=== PATIENT | female | born 1950 | race Hispanic/Latino ===

== ENCOUNTER 2017-10-12 15:28 | Observation (INO) | payer MEDICARE ==
[2017-10-12 15:49] VITALS: BMI 34.4
--- NOTE | 2017-10-12 16:13 | ED PDOC ---
Arrival/HPI - General Chief Complaint: Anxiety Time Seen by Provider: 10/12/17 15:35 Historian: Patient - History of Present Illness Narrative History of Present Illness (Text): 10/12/17 16:07 The patient, Vibha Roberts, a 66 year old female, whose PMHx includes HTN, hypercholesterolemia, chronic palpitation and anxiety, who presents to the ED complaining of palpitation x 3 weeks. Patient stated despite taking Toprol, palpitation have been more frequent. Patient saw her PMD Dr. Gao x 2 weeks ago. She stated EKG at doctor office was normal, and she was recommended to see Dr. Claros Parts Assembler, who she saw 2 days after. Patient stated Dr. Claros suggested to have her have a stress test, but she decline to get it. She wanted to monitor her symptoms first. Patient continues with symptoms. She had it last night. Symptoms started after waking up this morning. Patient feels mild shortness of breath when palpitation occurs. Patient does not think is her anxiety. Denies chest pain, abdominal pain, urinary symptoms, dizziness. Patient also noted she saw her fine grade operator a couple weeks ago, and her thyroid test was normal. Time/Duration: Other (see hpi) Context: Home Past Medical History - Provider Review Nursing Documentation Reviewed: Yes - Infectious Disease Hx of Infectious Diseases: None - Tetanus Immunization Tetanus Immunization: Unknown - Cardiac Hx Cardiac Disorders: Yes Hx Hypertension: Yes Hx Pacemaker: No Other/Comment: palpitations - Pulmonary Hx Respiratory Disorders: No Other/Comment: epiglotitis - trach 2012 - Neurological Hx Neurological Disorder: No - HEENT Other/Comment: h/o epiglottitis - Renal Hx Kidney Stones: Yes (2012) - Endocrine/Metabolic Hx Endocrine Disorders: No - Hematological/Oncological Hx Blood Disorders: No Hx Blood Transfusions: No Hx Blood Transfusion Reaction: No - Integumentary Hx Dermatological Disorder: No - Musculoskeletal/Rheumatological Hx Musculoskeletal Disorders: Yes - Gastrointestinal Hx Gastrointestinal Disorders: No - Genitourinary/Gynecological Hx Genitourinary Disorders: No - Psychiatric Hx Psychophysiologic Disorder: Yes Hx Anxiety: Yes Hx Emotional Abuse: No Hx Physical Abuse: No Hx Substance Use: No - Surgical History Hx Cholecystectomy: Yes Hx Musculoskeletal Surgery: Yes (right elbow) - Anesthesia Hx Anesthesia Reactions: Yes (B/P DROPS) - Suicidal Assessment Feels Threatened In Home Enviroment: No Family/Social History - Physician Review Nursing Documentation Reviewed: Yes Family/Social History: Other (noncontributory) Smoking Status: Never Smoked Hx Alcohol Use: Yes Hx Substance Use: No Hx Substance Use Treatment: No Allergies/Home Meds Allergies/Adverse Reactions: Allergies cefuroxime axetil [From Ceftin] Allergy (Verified 07/29/16 12:52) RASH Home Medications: Home Meds Medication Instructions Recorded Confirmed Aspirin [Aspir 81] 81 mg PO DAILY 01/29/12 10/12/17 Metoprolol Succinate [Toprol XL] 100 mg PO BID 01/29/12 10/12/17 Pantoprazole [Protonix EC Tab] 40 mg PO DAILY 10/30/13 10/12/17 Pravastatin Sodium [Pravachol] 80 mg PO HS 07/29/16 10/12/17 Valsartan/Hydrochlorothiazide 1 tab PO DAILY 07/29/16 10/12/17 [Valsartan-Hctz 160-25 mg Tab] Review of Systems - Review of Systems Constitutional: Normal. absent: Fatigue, Weight Change, Fevers Eyes: Normal ENT: Normal Respiratory: Normal. absent: SOB, Cough Cardiovascular: Normal, Palpitations. absent: Chest Pain, Edema, Calf Pain, HUMPHREYS , Orthopnea, Syncope Gastrointestinal: Normal. absent: Abdominal Pain, Nausea, Vomiting Genitourinary Female: Normal. absent: Dysuria, Frequency, Hematuria Musculoskeletal: Normal. absent: Back Pain, Neck Pain Skin: Normal. absent: Rash Neurological: Normal. absent: Headache, Dizziness, Focal Weakness, Gait Changes , Speech Changes, Facial Droop, Disequilibrium, Seizure Endocrine: Normal Hemo/Lymphatic: Normal Psychiatric: Normal. absent: Depression, Suicidal Ideation Physical Exam Vital Signs Temp Pulse Resp BP Pulse Ox 10/12/17 18:19 68 18 134/71 99 10/12/17 15:51 98.9 F 92 H 18 138/91 H 98 Temperature: Afebrile Blood Pressure: Normal Pulse: Regular Respiratory Rate: Normal Appearance: Positive for: Well-Appearing, Non-Toxic, Comfortable Pain Distress: None Mental Status: Positive for: Alert and Oriented X 3 - Systems Exam Head: Present: Atraumatic, Normocephalic Pupils: Present: PERRL Extroacular Muscles: Present: EOMI Conjunctiva: Present: Normal Mouth: Present: Moist Mucous Membranes Neck: Present: Normal Range of Motion. No: Meningeal Signs Respiratory/Chest: Present: Clear to Auscultation, Good Air Exchange. No: Respiratory Distress, Accessory Muscle Use, Wheezes, Retracting, Rhonchi Cardiovascular: Present: Regular Rate and Rhythm, Normal S1, S2. No: Murmurs Abdomen: No: Tenderness, Distention, Peritoneal Signs, Rebound, Guarding Back: Present: Normal Inspection. No: CVA Tenderness Upper Extremity: Present: Normal Inspection, Normal ROM. No: Cyanosis, Edema Lower Extremity: Present: Normal Inspection, Normal ROM. No: Edema Neurological: Present: GCS=15, CN II-XII Intact, Speech Normal Skin: Present: Warm, Dry, Normal Color. No: Rashes Psychiatric: Present: Alert, Oriented x 3, Normal Insight, Normal Concentration. No: Suicidal Ideation, Homicidal Ideation Medical Decision Making ED Course and Treatment: 10/12/17 18:[address] Barton Hospitalist regarding patient complaining of palpitation which it has been worsening. We reviewed labs, Chest X-ray and previous visits. He agreed with plan for observation. Re-evaluation Time: 18:00 Reassessment Condition: Re-examined, Improving,but remains with symptoms - Lab Interpretations Lab Results: 10/12/17 16:30 10/12/17 16:30 Lab Results 10/12/17 17:00: Urine Color Yellow, Urine Appearance Sl cloudy, Urine pH 7.0, Ur Specific [place] 1.015, Urine Protein Negative, Urine Glucose (UA) Negative, Urine Ketones Negative, Urine Blood Trace-intact H, Urine Nitrate Negative, Urine Bilirubin Negative, Urine Urobilinogen 0.2, Ur Leukocyte Esterase Moderate H, Urine RBC 1 - 3, Urine WBC 10 - 15, Ur Epithelial Cells 4 - 5, Amorphous Sediment Few, Urine Bacteria Mod 10/12/17 16:30: Sodium 143, Potassium 4.8, Chloride 104, Carbon Dioxide 30, Anion Gap 13, BUN 15, Creatinine 1.2, Est GFR ( Amer) 54, Est GFR (Non- Af Amer) 45, Random Glucose 116 H, Calcium 10.9 H, Magnesium 1.7, Total Bilirubin 0.9, AST 45 H, ALT 39, Alkaline Phosphatase 42, Lactate Dehydrogenase 535, Total Creatine Kinase 96, Troponin I < 0.01, NT-Pro-B Natriuret Pep 61.2, Total Protein 7.6, Albumin 4.0, Globulin 3.6, Albumin/Globulin Ratio 1.1 10/12/17 16:30: WBC 8.6 D, RBC 4.02, Hgb 13.0, Hct 37.8, MCV 94.0, MCH 32.3, MCHC 34.4, RDW 12.9, Plt Count 241, MPV 8.5, Gran % 71.7 H, Lymph % (Auto) 16.1 L, Amelia % (Auto) 11.0 H, Eos % (Auto) 1.0 L, Baso % (Auto) 0.2, Gran # 6.18, Lymph # (Auto) 1.4, Amelia # (Auto) 1.0 H, Eos # (Auto) 0.1, Baso # (Auto) 0.02 I have reviewed the lab results: Yes Interpretation: Abnormal lab values - RAD Interpretation Narrative RAD Interpretations (Text): 10/12/17 16:56 Chest x-rays: NAD Radiology Orders: 10/12/17 16:16 CHEST PORTABLE [RAD] Stat - EKG Interpretation Interpreted by ED Physician: Yes (NSR @ 89 bpm. nonspecific t wave abnormality) Type: 12 lead EKG Comparison: Similar to previous EKG - Medication Orders Current Medication Orders: Aspirin (Ecotrin) 81 mg PO DAILY DIOGENES Metoprolol Succinate (Toprol Xl) 100 mg PO BID DIOGENES Non-Formulary Medication (Pravastatin Sodium [Pravachol]) 80 mg PO HS DIOGENES Non-Formulary Medication (Valsartan/Hydrochlorothiazide [Valsartan-Hctz 160-25 Mg Tab]) 1 tab PO DAILY DIOGENES Pantoprazole Sodium (Protonix Ec Tab) 40 mg PO DAILY DIOGENES Discontinued Medications Nitrofurantoin Macrocrystals (Macrobid) 100 mg PO STAT STA PRN Reason: Protocol Stop: 10/12/17 17:51 Last Admin: 10/12/17 17:55 Dose: 100 mg Disposition/Present on Arrival - Present on Arrival Any Indicators Present on Arrival: No History of DVT/PE: No History of Uncontrolled Diabetes: No Urinary Catheter: No History of Decub. Ulcer: No History Surgical Site Infection Following: None - Disposition Have Diagnosis and Disposition been Completed?: Yes Diagnosis: Intermittent palpitations, Acute cystitis Disposition: HOSPITALIZED Disposition Time: 18:00 Patient Plan: Observation Condition: STABLE
[2017-10-12 16:54] LABS: BASO # 0.02 K/mm3 (0.0-2.0); BASO % 0.2 % (0.0-3.0); EOS # 0.1 (0.0-0.7); GRAN # 6.18 (1.4-6.5); GRAN % 71.7 % (50.0-68.0); LYMPH # 1.4 (1.2-3.4); LYMPH % 16.1 % (22.0-35.0); MEAN CORPUSCULAR HEMOGLOBIN 32.3 pg (25.0-35.0); MEAN CORPUSCULAR HGB CONC 34.4 g/dl (31.0-37.0); MEAN PLATELET VOLUME 8.5 fl (7.0-11.0); RBC 4.02 10^6/uL (3.5-6.1); RED CELL DISTRIBUTION WIDTH 12.9 % (11.5-14.5); WHITE BLOOD COUNT 8.6 10^3/ul (4.5-11.0)
[2017-10-12 17:03] LABS: ALB/GLOB RATIO 1.1 (1.1-1.8); ALT/SGPT 39 U/L (7-56); AST/SGOT 45 U/L (14-36); BLOOD UREA NITROGEN 15 mg/dL (7-21); CALCIUM 10.9 mg/dL (8.4-10.5); GFR AFRICAN-AMERICAN 54; GFR NON-AFRICAN AMERICAN 45
--- NOTE | 2017-10-12 17:21 | RAD ---
HISTORY: palpitation COMPARISON: 07/29/2016 FINDINGS: LUNGS: No active pulmonary disease. PLEURA: No significant pleural effusion identified, no pneumothorax apparent. CARDIOVASCULAR: Normal. OSSEOUS STRUCTURES: No significant abnormalities. VISUALIZED UPPER ABDOMEN: Normal. OTHER FINDINGS: None. IMPRESSION: No active disease.
[2017-10-12 17:22] LABS: B-TYPE NATRIURETIC PEPTIDE 61.2 pg/mL (0-450); TROPONIN I < 0.01 ng/mL
[2017-10-12 17:28] LABS: URINE APPEARANCE SL CLOUDY (CLEAR); URINE BILIRUBIN NEGATIVE (NEGATIVE); URINE BLOOD TRACE-INTACT (NEGATIVE); URINE COLOR YELLOW (YELLOW); URINE GLUCOSE (UA) NEGATIVE (NEGATIVE); URINE LEUKOCYTE ESTERASE MODERATE Leu/uL (NEGATIVE); URINE PROTEIN NEGATIVE mg/dL (<30 mg/dL); URINE UROBILINOGEN 0.2 E.U./dL (<1 E.U./dL)
[2017-10-12 17:32] LABS: URINE AMORPHOUS SEDIMENT FEW; URINE BACTERIA MOD (NEG)
--- NOTE | 2017-10-12 18:50 | CP.PCM.HP ---
<Juliano Fernandez - Last Filed: 10/12/17 19:14> History of Present Illness - History of Present Illness History of Present Illness: 66 year old female with a past medical history of hypertension, dyslipidemia, anxiety disorder unpspecified who presents to the ED complaining of anxiety attacks for the past three weeks. She reports the attacks occur at rest, unrelated to activity, with the feelings that she cannot breath. She denies the sensation that her heart is pulsating out of her chest, states the episodes last for 2-3 minutes, denies associated chest pain or diaphoresis. Patient stated despite taking Toprol 100 mg BID she is having the palpitations more frequently and hence was referred to see Dr. Wyatt who recommended a stress test that she declined. She denies chest pain, abdominal pain, urinary symptoms , dizziness, syncope. dysuria, nausea, or vomiting. In the ED labs were notable for UTI for which she was given PO Macrobid. She denies any changes to her medication or any excess stressors. She does not take anything for her anxiety attacks though she states she does have tranquilizer at home. 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, denies alcohol, tobacco, or illicit drug use Present on Admission - Present on Admission Any Indicators Present on Admission: No Review of Systems - Review of Systems All systems: reviewed and no additional remarkable complaints except (as per HPI ) Past Patient History - Infectious Disease Hx of Infectious Diseases: None - Tetanus Immunizations Tetanus Immunization: Unknown - Past Social History Smoking Status: Never Smoked - CARDIAC Hx Cardiac Disorders: Yes Hx Hypertension: Yes Hx Pacemaker: No Other/Comment: palpitations - PULMONARY Hx Respiratory Disorders: No Other/Comment: epiglotitis - trach 2012 - NEUROLOGICAL Hx Neurological Disorder: No - HEENT Other/Comment: h/o epiglottitis - RENAL Hx Kidney Stones: Yes (2011) - ENDOCRINE/METABOLIC Hx Endocrine Disorders: No - HEMATOLOGICAL/ONCOLOGICAL Hx Blood Disorders: No Hx Blood Transfusions: No Hx Blood Transfusion Reaction: No - INTEGUMENTARY Hx Dermatological Problems: No - MUSCULOSKELETAL/RHEUMATOLOGICAL Hx Musculoskeletal Disorders: Yes - GASTROINTESTINAL Hx Gastrointestinal Disorders: No - GENITOURINARY/GYNECOLOGICAL Hx Genitourinary Disorders: No - PSYCHIATRIC Hx Psychophysiologic Disorder: Yes Hx Anxiety: Yes Hx Emotional Abuse: No Hx Physical Abuse: No Hx Substance Use: No - SURGICAL HISTORY Hx Cholecystectomy: Yes Hx Musculoskeletal Surgery: Yes (right elbow) - ANESTHESIA Hx Anesthesia Reactions: Yes (B/P DROPS) Meds Allergies/Adverse Reactions: Allergies Allergy/AdvReac Type Severity Reaction Status Date / Time cefuroxime axetil Allergy RASH Verified 07/29/16 12:52 [From Ceftin] Physical Exam - Constitutional Appears: Non-toxic, No Acute Distress - Head Exam Head Exam: ATRAUMATIC, NORMOCEPHALIC - Eye Exam Eye Exam: EOMI, Normal appearance - ENT Exam ENT Exam: Mucous Membranes Moist, Normal Oropharynx - Neck Exam Neck exam: Positive for: Normal Inspection - Respiratory Exam Respiratory Exam: Clear to Auscultation Bilateral, NORMAL BREATHING PATTERN. absent: Accessory Muscle Use - Cardiovascular Exam Cardiovascular Exam: RRR, +S1, +S2 - GI/Abdominal Exam GI & Abdominal Exam: Normal Bowel Sounds, Soft - Extremities Exam Extremities exam: Positive for: normal inspection. Negative for: calf tenderness - Back Exam Back exam: NORMAL INSPECTION. absent: CVA tenderness (L), CVA tenderness (R) - Neurological Exam Neurological exam: Alert, CN II-XII Intact, Oriented x3 - Psychiatric Exam Psychiatric exam: Normal Affect, Normal Mood - Skin Skin Exam: Dry, Intact, Normal Color, Warm Results - Vital Signs Recent Vital Signs: Last Vital Signs Temp 98.9 F 10/12/17 15:51 Pulse 68 10/12/17 18:19 Resp 18 10/12/17 18:19 BP 134/71 10/12/17 18:19 Pulse Ox 99 10/12/17 18:19 - Labs Result Diagrams: 10/12/17 16:30 10/12/17 16:30 Assessment & Plan - Assessment and Plan (Free Text) Assessment: 1) Episodic dyspnea and palpitations - EKG shows - trend troponins - echocardiogram - cardiology consulted - TSH, lipid panel, d-dimer, HgA1c, urine drug screen - monitor for arrhytmias on telemetry 2) UTI - repeat UA - Continue Nitrofurantoin 100 mg q12h 3) GI/DVT - Protonix - SCD Case seen and discussed with Dr. Barton - Date & Time Date: 10/12/17 Time: 19:15 <Rosa Barton - Last Filed: 10/13/17 13:26> Results - Vital Signs Recent Vital Signs: Last Vital Signs Temp 98.1 F 10/13/17 07:27 Pulse 72 10/13/17 10:23 Resp 19 10/13/17 07:27 BP 137/73 10/13/17 10:23 Pulse Ox 96 10/13/17 07:27 - Labs Result Diagrams: 10/12/17 16:30 10/12/17 16:30 Labs: Laboratory Results - last 24 hr 10/12/17 22:00 Troponin I < 0.01 Attending/Attestation - Attestation I have personally seen and examined this patient.: Yes I have fully participated in the care of the patient.: Yes I have reviewed all pertinent clinical information: Yes Notes (Text): 10/13/17 13:23 Medical record note made by the resident after discussion with my direction and input after the patient was personally seen and examined by me. I have reviewed the chart and agree that the record accurately reflects by personal performance of the history, physical exam, data review, and medical decision-making, in the course for the patient. I have also personally directed the plan of care. 66 year old female with a past medical history of hypertension, dyslipidemia, anxiety disorder is admitted with H/O intermittent palpitation and UTI. Patient is asymptomatic in ER.We will observe patient in telemetry.We will check thyroid functions.We will also get Cardiology evaluation. Continue antibiotics for UTI. Management plan was discussed in detail with patient. Education was provided.
[2017-10-12 19:02] LABS: HDL CHOLESTEROL 42 mg/dL (29-60)
[2017-10-12 19:13] LABS: LDL CHOLESTEROL 93 mg/dL (0-129)
[2017-10-12] MEDS ORDERED: Metoprolol Succinate 50 mg XL Tab PO ONE ×2 (22:42→22:56)
[2017-10-12] MEDS ORDERED: Pneumococcal 23-Valent Vaccine IM ONE (22:47)
[2017-10-13 07:28] VITALS: BP 137/73; PULSE 72; RESP 19; TEMP 98.1; O2SAT 96
[2017-10-13] MEDS ORDERED: Pantoprazole 40 mg EC Tab PO SCH (10:00)
[2017-10-13] MEDS ORDERED: Metoprolol Succinate 100 mg XL Tab PO SCH ×2 (10:30→18:00)
--- NOTE | 2017-10-13 14:26 | CARD ---
APPROVED REPORT EKG Measurement Heart [id number] <Conclusion> Normal sinus rhythm Low voltage QRS RSR' or QR pattern in V1 suggests right ventricular conduction delay Left anterior fascicular block Nonspecific T wave abnormality Abnormal ECG
--- NOTE | 2017-10-13 16:10 | CP.PCM.DIS ---
<Juliano Fernandez - Last Filed: 10/13/17 16:10> Provider - Provider Date of Admission: 10/12/17 18:00 Attending physician: Rosa Barton MD Primary care physician: Michael Gao MD Consults: Dr. King/Yoselin Time Spent in preparation of Discharge (in minutes): 35 Diagnosis - Discharge Diagnosis (1) UTI (urinary tract infection) Status: Acute (2) Palpitation Status: Acute Hospital Course - Lab Results Lab Results: Most Recent Lab Values WBC 8.6 10^3/ul (4.5-11.0) D 10/12/17 16:30 RBC 4.02 10^6/uL (3.5-6.1) 10/12/17 16:30 Hgb 13.0 g/dL (12.0-16.0) 10/12/17 16:30 Hct 37.8 % (36.0-48.0) 10/12/17 16:30 MCV 94.0 fl (80.0-105.0) 10/12/17 16:30 MCH 32.3 pg (25.0-35.0) 10/12/17 16:30 MCHC 34.4 g/dl (31.0-37.0) 10/12/17 16:30 RDW 12.9 % (11.5-14.5) 10/12/17 16:30 Plt Count 241 10^3/uL (120.0-450.0) 10/12/17 16:30 MPV 8.5 fl (7.0-11.0) 10/12/17 16:30 Gran % 71.7 % (50.0-68.0) H 10/12/17 16:30 Lymph % (Auto) 16.1 % (22.0-35.0) L 10/12/17 16:30 Ocean % (Auto) 11.0 % (1.0-6.0) H 10/12/17 16:30 Eos % (Auto) 1.0 % (1.5-5.0) L 10/12/17 16:30 Baso % (Auto) 0.2 % (0.0-3.0) 10/12/17 16:30 Gran # 6.18 (1.4-6.5) 10/12/17 16:30 Lymph # (Auto) 1.4 (1.2-3.4) 10/12/17 16:30 Ocean # (Auto) 1.0 (0.1-0.6) H 10/12/17 16:30 Eos # (Auto) 0.1 (0.0-0.7) 10/12/17 16:30 Baso # (Auto) 0.02 K/mm3 (0.0-2.0) 10/12/17 16:30 D-Dimer, Quantitative 287 ng/mL (0-243) H 10/12/17 16:30 Sodium 143 mmol/L (132-148) 10/12/17 16:30 Potassium 4.8 mmol/L (3.6-5.0) 10/12/17 16:30 Chloride 104 mmol/L (98-107) 10/12/17 16:30 Carbon Dioxide 30 mmol/L (21-33) 10/12/17 16:30 Anion Gap 13 (10-20) 10/12/17 16:30 BUN 15 mg/dL (7-21) 10/12/17 16:30 Creatinine 1.2 mg/dl (0.7-1.2) 10/12/17 16:30 Est GFR ( Amer) 54 10/12/17 16:30 Est GFR (Non-Af Amer) 45 10/12/17 16:30 Random Glucose 116 mg/dL (70-110) H 10/12/17 16:30 Hemoglobin A1c 5.8 % (4.2-6.5) 10/12/17 16:30 Calcium 10.9 mg/dL (8.4-10.5) H 10/12/17 16:30 Magnesium 1.7 mg/dL (1.7-2.2) 10/12/17 16:30 Total Bilirubin 0.9 mg/dL (0.2-1.3) 10/12/17 16:30 AST 45 U/L (14-36) H 10/12/17 16:30 ALT 39 U/L (7-56) 10/12/17 16:30 Alkaline Phosphatase 42 U/L (38-126) 10/12/17 16:30 Lactate Dehydrogenase 535 U/L (333-699) 10/12/17 16:30 Total Creatine Kinase 96 U/L (35-230) 10/12/17 16:30 Troponin I < 0.01 ng/mL 10/12/17 22:00 NT-Pro-B Natriuret Pep 61.2 pg/mL (0-450) 10/12/17 16:30 Total Protein 7.6 g/dL (5.8-8.3) 10/12/17 16:30 Albumin 4.0 g/dL (3.0-4.8) 10/12/17 16:30 Globulin 3.6 gm/dL 10/12/17 16:30 Albumin/Globulin Ratio 1.1 (1.1-1.8) 10/12/17 16:30 Triglycerides 161 mg/dL (35-160) H 10/12/17 16:30 Cholesterol 170 mg/dL (130-200) 10/12/17 16:30 LDL Cholesterol Direct 93 mg/dL (0-129) 10/12/17 16:30 HDL Cholesterol 42 mg/dL (29-60) 10/12/17 16:30 Free T4 0.90 ng/dL (0.78-2.19) 10/12/17 16:30 Free T3 pg/mL 4.54 pg/mL (2.77-5.27) 10/12/17 16:30 TSH 3rd Generation 0.39 mIU/mL (0.46-4.68) L 10/12/17 16:30 Urine Color Yellow (YELLOW) 10/12/17 17:00 Urine Appearance Sl cloudy (CLEAR) 10/12/17 17:00 Urine pH 7.0 (4.7-8.0) 10/12/17 17:00 Ur Specific [place] 1.015 (1.005-1.035) 10/12/17 17:00 Urine Protein Negative mg/dL (<30 mg/dL) 10/12/17 17:00 Urine Glucose (UA) Negative mg/dL (NEGATIVE) 10/12/17 17:00 Urine Ketones Negative mg/dL (NEGATIVE) 10/12/17 17:00 Urine Blood Trace-intact (NEGATIVE) H 10/12/17 17:00 Urine Nitrate Negative (NEGATIVE) 10/12/17 17:00 Urine Bilirubin Negative (NEGATIVE) 10/12/17 17:00 Urine Urobilinogen 0.2 E.U./dL (<1 E.U./dL) 10/12/17 17:00 Ur Leukocyte Esterase Moderate Marie/uL (NEGATIVE) H 10/12/17 17:00 Urine RBC 1 - 3 /hpf (0-2) 10/12/17 17:00 Urine WBC 10 - 15 /hpf (0-6) 10/12/17 17:00 Ur Epithelial Cells 4 - 5 /hpf (0-5) 10/12/17 17:00 Amorphous Sediment Few 10/12/17 17:00 Urine Bacteria Mod (NEG) 10/12/17 17:00 - Hospital Course Hospital Course: 66 year old female with a past medical history of hypertension, dyslipidemia, anxiety disorder unpspecified who presents to the ED complaining of anxiety attacks for the past three weeks. She reports the attacks occur at rest, unrelated to activity, with the feelings that she cannot breath. She denies the sensation that her heart is pulsating out of her chest, states the episodes last for 2-3 minutes, denies associated chest pain or diaphoresis. Patient stated despite taking Toprol 100 mg BID she is having the palpitations more frequently and hence was referred to see Dr. Wyatt who recommended a stress test that she declined. She denies chest pain, abdominal pain, urinary symptoms , dizziness, syncope. dysuria, nausea, or vomiting. In the ED labs were notable for UTI for which she was given PO Macrobid. She denies any changes to her medication or any excess stressors. She does not take anything for her anxiety attacks though she states she does have tranquilizer at home. She was admitted and monitored on remote telemetry. EKG and troponins x3 were negative for ischemia. Cardiology cleared the patient and she was discharged with a 6 day course of Macrobid for her UTI. She was recommended to wear a holter monitor as an outpatient given the transient nature of her symptoms. During the patient hospital course she denied experiencing any palpitations, chest pain, syncope, or lightheadedness. - Date & Time of H&P Date of H&P: 10/13/17 Time of H&P: 10:05 Discharge Exam - Head Exam Head Exam: ATRAUMATIC, NORMOCEPHALIC - Eye Exam Eye Exam: EOMI, Normal appearance - ENT Exam ENT Exam: Mucous Membranes Moist, Normal Oropharynx - Neck Exam Neck exam: Normal Inspection - Respiratory Exam Respiratory Exam: Clear to PA & Lateral, NORMAL BREATHING PATTERN. absent: Accessory Muscle Use - Cardiovascular Exam Cardiovascular Exam: RRR, +S1, +S2 - GI/Abdominal Exam GI & Abdominal Exam: Normal Bowel Sounds. absent: Distended - Extremities Exam Extremities exam: normal inspection - Back Exam Back exam: NORMAL INSPECTION - Neurological Exam Neurological exam: Alert, CN II-XII Intact, Normal Gait, Oriented x3 - Psychiatric Exam Psychiatric exam: Normal Affect, Normal Mood - Skin Skin Exam: Dry, Intact, Normal Color, Warm Discharge Plan - Discharge Medications Prescriptions: Nitrofurantoin Monohyd/M-Cryst [Nitrofurantoin Ocean-Mcr 100 mg] 100 mg PO Q12H # 12 capsule - Follow Up Plan Condition: STABLE Disposition: HOME/ ROUTINE Instructions: Anxiety, Adult (DC), Shortness of Breath (Dyspnea) (DC), Palpitations (DC) Additional Instructions: 1) Patient to complete 6 day course of Nitrofurantoin for UTI. 2) Patient to follow up with Dr. Gao within one week. Referrals: Michael Gao MD [Primary Care Provider] - <Rosa Barton - Last Filed: 10/13/17 16:24> Provider - Provider Date of Admission: 10/12/17 18:00 Attending physician: Rosa Barton MD Primary care physician: Michael Gao MD Hospital Course - Lab Results Lab Results: Most Recent Lab Values WBC 8.6 10^3/ul (4.5-11.0) D 10/12/17 16:30 RBC 4.02 10^6/uL (3.5-6.1) 10/12/17 16:30 Hgb 13.0 g/dL (12.0-16.0) 10/12/17 16:30 Hct 37.8 % (36.0-48.0) 10/12/17 16:30 MCV 94.0 fl (80.0-105.0) 10/12/17 16:30 MCH 32.3 pg (25.0-35.0) 10/12/17 16:30 MCHC 34.4 g/dl (31.0-37.0) 10/12/17 16:30 RDW 12.9 % (11.5-14.5) 10/12/17 16:30 Plt Count 241 10^3/uL (120.0-450.0) 10/12/17 16:30 MPV 8.5 fl (7.0-11.0) 10/12/17 16:30 Gran % 71.7 % (50.0-68.0) H 10/12/17 16:30 Lymph % (Auto) 16.1 % (22.0-35.0) L 10/12/17 16:30 Ocean % (Auto) 11.0 % (1.0-6.0) H 10/12/17 16:30 Eos % (Auto) 1.0 % (1.5-5.0) L 10/12/17 16:30 Baso % (Auto) 0.2 % (0.0-3.0) 10/12/17 16:30 Gran # 6.18 (1.4-6.5) 10/12/17 16:30 Lymph # (Auto) 1.4 (1.2-3.4) 10/12/17 16:30 Ocean # (Auto) 1.0 (0.1-0.6) H 10/12/17 16:30 Eos # (Auto) 0.1 (0.0-0.7) 10/12/17 16:30 Baso # (Auto) 0.02 K/mm3 (0.0-2.0) 10/12/17 16:30 D-Dimer, Quantitative 287 ng/mL (0-243) H 10/12/17 16:30 Sodium 143 mmol/L (132-148) 10/12/17 16:30 Potassium 4.8 mmol/L (3.6-5.0) 10/12/17 16:30 Chloride 104 mmol/L (98-107) 10/12/17 16:30 Carbon Dioxide 30 mmol/L (21-33) 10/12/17 16:30 Anion Gap 13 (10-20) 10/12/17 16:30 BUN 15 mg/dL (7-21) 10/12/17 16:30 Creatinine 1.2 mg/dl (0.7-1.2) 10/12/17 16:30 Est GFR ( Amer) 54 10/12/17 16:30 Est GFR (Non-Af Amer) 45 10/12/17 16:30 Random Glucose 116 mg/dL (70-110) H 10/12/17 16:30 Hemoglobin A1c 5.8 % (4.2-6.5) 10/12/17 16:30 Calcium 10.9 mg/dL (8.4-10.5) H 10/12/17 16:30 Magnesium 1.7 mg/dL (1.7-2.2) 10/12/17 16:30 Total Bilirubin 0.9 mg/dL (0.2-1.3) 10/12/17 16:30 AST 45 U/L (14-36) H 10/12/17 16:30 ALT 39 U/L (7-56) 10/12/17 16:30 Alkaline Phosphatase 42 U/L (38-126) 10/12/17 16:30 Lactate Dehydrogenase 535 U/L (333-699) 10/12/17 16:30 Total Creatine Kinase 96 U/L (35-230) 10/12/17 16:30 Troponin I < 0.01 ng/mL 10/12/17 22:00 NT-Pro-B Natriuret Pep 61.2 pg/mL (0-450) 10/12/17 16:30 Total Protein 7.6 g/dL (5.8-8.3) 10/12/17 16:30 Albumin 4.0 g/dL (3.0-4.8) 10/12/17 16:30 Globulin 3.6 gm/dL 10/12/17 16:30 Albumin/Globulin Ratio 1.1 (1.1-1.8) 10/12/17 16:30 Triglycerides 161 mg/dL (35-160) H 10/12/17 16:30 Cholesterol 170 mg/dL (130-200) 10/12/17 16:30 LDL Cholesterol Direct 93 mg/dL (0-129) 10/12/17 16:30 HDL Cholesterol 42 mg/dL (29-60) 10/12/17 16:30 Free T4 0.90 ng/dL (0.78-2.19) 10/12/17 16:30 Free T3 pg/mL 4.54 pg/mL (2.77-5.27) 10/12/17 16:30 TSH 3rd Generation 0.39 mIU/mL (0.46-4.68) L 10/12/17 16:30 Urine Color Yellow (YELLOW) 10/12/17 17:00 Urine Appearance Sl cloudy (CLEAR) 10/12/17 17:00 Urine pH 7.0 (4.7-8.0) 10/12/17 17:00 Ur Specific [place] 1.015 (1.005-1.035) 10/12/17 17:00 Urine Protein Negative mg/dL (<30 mg/dL) 10/12/17 17:00 Urine Glucose (UA) Negative mg/dL (NEGATIVE) 10/12/17 17:00 Urine Ketones Negative mg/dL (NEGATIVE) 10/12/17 17:00 Urine Blood Trace-intact (NEGATIVE) H 10/12/17 17:00 Urine Nitrate Negative (NEGATIVE) 10/12/17 17:00 Urine Bilirubin Negative (NEGATIVE) 10/12/17 17:00 Urine Urobilinogen 0.2 E.U./dL (<1 E.U./dL) 10/12/17 17:00 Ur Leukocyte Esterase Moderate Marie/uL (NEGATIVE) H 10/12/17 17:00 Urine RBC 1 - 3 /hpf (0-2) 10/12/17 17:00 Urine WBC 10 - 15 /hpf (0-6) 10/12/17 17:00 Ur Epithelial Cells 4 - 5 /hpf (0-5) 10/12/17 17:00 Amorphous Sediment Few 10/12/17 17:00 Urine Bacteria Mod (NEG) 10/12/17 17:00 Attending/Attestation - Attestation I have personally seen and examined this patient.: Yes I have fully participated in the care of the patient.: Yes I have reviewed all pertinent clinical information, including history, physical exam and plan: Yes Notes (Text): 10/13/17 16:21 Medical record note made by the resident after discussion with my direction and input after the patient was personally seen and examined by me. I have reviewed the chart and agree that the record accurately reflects by personal performance of the history, physical exam, data review, and medical decision-making, in the course for the patient. I have also personally directed the plan of care. 66 year old female with a past medical history of hypertension, dyslipidemia, anxiety disorder was admitted with H/O intermittent palpitation and UTI. 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 Patient was evaluated by cardiology and no further inpatient work up was recommended. Patient will be discharged home and will follow up with PCP Management plan was discussed in detail with patient. Education was provided.
--- NOTE | 2017-10-13 21:55 | CON ---
DATE: 10/13/2017 REQUESTING PHYSICIAN: Rosa Barton MD REASON FOR CONSULTATION: Palpitations, tachycardia. HISTORY OF PRESENT ILLNESS: This is a 66-year-old woman known to us from outpatient evaluation with a longstanding history of tachycardia. She has been somewhat elusive in terms of diagnosis. She presented to the emergency room with complaints of frequent palpitations for the past several weeks. She states that she has a history of anxiety disorder and feels that her palpitations are associated with this. She has had prior evaluations which have been unremarkable. She denied any chest pain. She did have some associated dyspnea. Her palpitations tend to occur in association with anxiety. She does have a history of hypertension and hyperlipidemia. She has been on high dose metoprolol for sometime. Her last stress test was approximately 2 years ago. PAST MEDICAL HISTORY: Notable for the problems mentioned above. 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 She has also undergone a prior elbow surgery. MEDICATIONS AT HOME: Include aspirin, metoprolol 100 mg b.i.d., Protonix, pravastatin, and Diovan/hydrochlorothiazide 160/25 mg daily. ALLERGIES: SHE HAS HAD A REACTION WITH CEFTIN IN THE PAST. SOCIAL HISTORY: She does not smoke or drink. FAMILY HISTORY: Unremarkable for premature heart disease. REVIEW OF SYSTEMS: A 10-point review of systems is notable for problems as mentioned above. PHYSICAL EXAMINATION: GENERAL: She is an overweight middle-aged woman. VITAL SIGNS: Her blood pressure is 136/72 with pulse of 70, in sinus, respirations are 16. She is afebrile. HEENT: Head normocephalic, atraumatic. NECK: Supple. No JVD noted. CHEST: Clear to auscultation and percussion. HEART: PMI in normal position. No pathological gallops noted. ABDOMEN: Soft, nontender. Normoactive bowel sounds. EXTREMITIES: No clubbing, cyanosis or edema. SKIN: Warm and dry. PSYCHIATRIC: Normal mood and affect. NEUROLOGIC: Alert and oriented x3. No gross motor or sensory deficits appreciable. DIAGNOSTIC DATA: Electrocardiogram reveals sinus rhythm with borderline low voltage, poor R wave progression, left anterior hemiblock and nonspecific ST-T abnormalities. Chest x-ray reveals normal cardiac silhouette with clear lung barba. White count is 8.6, hemoglobin and hematocrit are 13.0 and 37.8, platelet count of 241,000. BUN and creatinine are 15 and 1.2. Calcium 10.9. Two sets cardiac enzymes are negative. TSH 0.39. IMPRESSION: 1. Tachycardia, etiology uncertain. By description, symptoms appeared to be precipitated by anxiety and this may all be due to reflux tachycardia. Prior workup will be reviewed. If her symptoms persist, then a suspicion for tachyarrhythmias is noted, and implantable loop recorder may be helpful in definitively assessing the possibility of dysrhythmias as a cause. 2. Elevated calcium, warrants further evaluation. 3. Multiple cardiac risk factors given hypertension and hyperlipidemia. Outpatient stress test is warranted. RECOMMENDATIONS: Her current medications can continue for now. She appears stable from a cardiac standpoint for discharge home with outpatient followup. An outpatient stress test will be arranged as her last study was over a few years ago. Consideration should be given to possible implantable loop recorder use. Thank you for this consultation. aIn Conner MD
== END 2017-10-13 12:07 | disposition home or self-care (01) ==
LOC: ED 15:28 → ERH 18:00 → 3RNO 18:42
PROVIDERS: ADMIT Internal Medicine; ATTEND Internal Medicine
DX: R00.2 Palpitations (principal); N30.00 Acute cystitis without hematuria; I10 Essential (primary) hypertension; F41.1 Generalized anxiety disorder; E78.5 Hyperlipidemia, unspecified; Z87.442 Personal history of urinary calculi; Z79.82 Long term (current) use of aspirin
CPT/HCPCS: 71045; 80053; 80061; 81001; 82550; 83036; 83615; 83735; 83880; 84439; 84443; 84481; 84484; 85025; 85378; 87086; 93005; 99285; G0378

== ENCOUNTER 2018-08-30 11:00 | Inpatient (IN) | payer MEDICARE ==
[2018-08-30] MEDS ORDERED: Sodium Chloride 0.9% 500 ML IV ONE (11:22)
--- NOTE | 2018-08-30 11:28 | ED PDOC ---
Arrival/HPI - General Chief Complaint: Dizziness/Lightheaded Time Seen by Provider: 08/30/18 11:06 Historian: Patient - History of Present Illness Narrative History of Present Illness (Text): 08/30/18 11:30 67 year old female, whose past medical history includes hypertension, hypercholesterolemia, chronic palpitation, and anxiety, who presents to the emergency department complaining of near syncope earlier today. She was sitting on the toilet earlier this morning when she felt dizzy, lightheaded, and had a near syncopal episode; her family brought her in for further evaluation. Patient reports 2 day history of cough, congestion, URI, fever, chills, generalized weakness, fatigue, myalgia, arthalgia, and chest pain only with cough. She notes seeing Dr. Gao yesterday for these symptoms and he prescribed her cough suppressant, antibiotics, and an inhaler. Patient denies smoking or ETOH use, headache, chest pain, shortness of breath, dyspnea on exertion, abdominal pain, nausea, vomiting, diarrhea, back pain, neck pain, or any other complaint. PMD: Dr. Gao Time/Duration: < week (2 days) Symptom Onset: Gradual Symptom Course: Unchanged Activities at Onset: Light Context: Home Past Medical History - Provider Review Nursing Documentation Reviewed: Yes - Infectious Disease Hx of Infectious Diseases: None - Tetanus Immunization Tetanus Immunization: Unknown - Cardiac Hx Cardiac Disorders: Yes Hx Hypertension: Yes Hx Pacemaker: No Hx Peripheral Edema: Yes (left ankle +1 edema from sprain "sometimes") Other/Comment: palpitations - Pulmonary Hx Respiratory Disorders: Yes (epiglottitis/trach 2012) - Neurological Hx Neurological Disorder: No - HEENT Hx HEENT Disorder: Yes (eyeglasses) Other/Comment: 01/2012 pt developed swelling to right neck and pain voice was hoarse and swollen glands, unable to swallow pills while in hospital throat was swelling dr samayoa performed sx could not get the endotracheal tube down her throat, pt had to be trached, pt dx with epiglottitis - Renal Hx Kidney Stones: Yes (2011) Other/Comment: renal stents 08/2011, bladder/kidney infection - Endocrine/Metabolic Hx Endocrine Disorders: No - Hematological/Oncological Hx Blood Disorders: No - Integumentary Hx Dermatological Disorder: No - Musculoskeletal/Rheumatological Hx Falls: No - Gastrointestinal Hx Gastrointestinal Disorders: Yes (obese) Hx Gall Bladder Disease: Yes HX Swallowing Problems: Yes (hx epiglottitis) - Genitourinary/Gynecological Hx Genitourinary Disorders: Yes Other/Comment: r breast bx x2 - Psychiatric Hx Psychophysiologic Disorder: Yes Hx Anxiety: Yes Hx Emotional Abuse: No Hx Physical Abuse: No Hx Substance Use: No - Surgical History Hx Cholecystectomy: Yes (and lysis of adhesions laparoscopic) Hx Musculoskeletal Surgery: Yes (right elbow fx sx w/plate) Other/Comment: thyroid bx x2, bakers cyst removed behind knee, trach due to epiglottitis - Anesthesia Hx Anesthesia Reactions: Yes (B/P DROPS) - Suicidal Assessment Feels Threatened In Home Enviroment: No Family/Social History - Physician Review Nursing Documentation Reviewed: Yes Family/Social History: No Known Family HX Smoking Status: Never Smoked Hx Alcohol Use: Yes (social) Hx Substance Use: No Hx Substance Use Treatment: No Allergies/Home Meds Allergies/Adverse Reactions: Allergies cefuroxime axetil [From Ceftin] Allergy (Verified 08/30/18 11:14) RASH Home Medications: Home Meds Medication Instructions Recorded Confirmed Aspirin [Aspir 81] 81 mg PO DAILY 01/29/12 10/12/17 Metoprolol Succinate XL [Toprol XL] 100 mg PO BID 01/29/12 10/12/17 Pantoprazole [Protonix EC Tab] 40 mg PO DAILY 10/30/13 10/12/17 Pravastatin Sodium [Pravachol] 80 mg PO HS 07/29/16 10/12/17 Valsartan/Hydrochlorothiazide 1 tab PO DAILY 07/29/16 10/12/17 [Valsartan-Hctz 160-25 mg Tab] Review of Systems - Physician Review All systems were reviewed & negative as marked: Yes - Review of Systems Constitutional: Fevers (and chilla), Other (generalized weakness) ENT: Sinus Congestion Respiratory: Cough. absent: SOB Cardiovascular: Chest Pain (with cough only ) Gastrointestinal: absent: Abdominal Pain, Diarrhea, Nausea, Vomiting Genitourinary Female: absent: Dysuria, Frequency, Hematuria Musculoskeletal: Arthralgias, Myalgias Neurological: Dizziness. absent: Headache Physical Exam Vital Signs Reviewed: Yes Vital Signs Temp Pulse Resp BP Pulse Ox 08/30/18 11:11 102 F H 116 H 18 135/77 96 Temperature: Febrile Blood Pressure: Normal Pulse: Tachycardic Respiratory Rate: Normal Appearance: Positive for: Well-Appearing, Non-Toxic, Comfortable Pain Distress: None Mental Status: Positive for: Alert and Oriented X 3 - Systems Exam Head: Present: Atraumatic, Normocephalic Pupils: Present: PERRL Extroacular Muscles: Present: EOMI Conjunctiva: Present: Normal Mouth: Present: Moist Mucous Membranes Nose (Internal): Present: Other (nasal congestion) Neck: Present: Normal Range of Motion Respiratory/Chest: Present: Clear to Auscultation, Good Air Exchange. No: Respiratory Distress, Accessory Muscle Use Cardiovascular: Present: Normal S1, S2, Tachycardic. No: Murmurs Abdomen: No: Tenderness, Distention, Peritoneal Signs Back: Present: Normal Inspection Upper Extremity: Present: Normal Inspection. No: Cyanosis, Edema Lower Extremity: Present: Normal Inspection. No: Edema Neurological: Present: GCS=15, CN II-XII Intact, Speech Normal Skin: Present: Warm, Dry, Normal Color. No: Rashes Psychiatric: Present: Alert, Oriented x 3, Normal Insight, Normal Concentration Medical Decision Making ED Course and Treatment: 08/30/18 11:25 Impression: 67 year old female who presents to the emergency department complaining of near syncopal episode. Plan: -- VBG -- EKG -- Labs -- Chest X-ray -- IV fluids -- Tylenol -- Blood Culture -- Rapid Flu A/B -- Urinalysis -- Reassess and disposition Prior Visits: Notes and results from previous visits were reviewed. Progress Notes: 08/30/18 12:06 Chest X-ray reviewed, shows: IMPRESSION: Right lower lobe pneumonia. Follow-up after medical management is recommended to ensure complete resolution. The final report is tagged to the PA review folder. 08/30/18 12:50 Failed outpatient management. Admit to Dr. Barton for pneumonia. 08/30/18 13:31 EKG shows sinus tachycardia rate approximately [address] and T wave changes laterally poor R waves in no acute changes - Lab Interpretations I have reviewed the lab results: Yes - RAD Interpretation Radiology Orders: 08/30/18 11:21 CHEST PORTABLE [RAD] Stat Advanced Clinical Specialist: Radiologist - Medication Orders Current Medication Orders: Sodium Chloride (Sodium Chloride 0.9%) 500 mls @ 500 mls/hr IV ONCE ONE Stop: 08/30/18 12:21 Discontinued Medications Acetaminophen (Tylenol 325mg Tab) 650 mg PO STAT STA Stop: 08/30/18 11:22 - Scribe Statement The provider has reviewed the documentation as recorded by the Yair Roberto Provider Scribe Attestation: All medical record entries made by the Scribe were at my direction and personall y dictated by me. I have reviewed the chart and agree that the record accurately reflects my personal performance of the history, physical exam, medical decision making, and the department course for this patient. I have also personally directed, reviewed, and agree with the discharge instructions and disposition. Disposition/Present on Arrival - Present on Arrival Any Indicators Present on Arrival: No History of DVT/PE: No History of Uncontrolled Diabetes: No Urinary Catheter: No History of Decub. Ulcer: No History Surgical Site Infection Following: None - Disposition Have Diagnosis and Disposition been Completed?: Yes Diagnosis: Fever, Pneumonia, Weakness, Near syncope Disposition: HOSPITALIZED Disposition Time: 12:50 Patient Plan: Admission Patient Problems: Current Active Problems Problem Status Onset Fever Acute Near syncope Acute Pneumonia Acute Weakness Acute Condition: FAIR
--- NOTE | 2018-08-30 11:42 | RAD ---
Date of service: 08/30/2018 HISTORY: cough COMPARISON: 10/12/2017 FINDINGS: LUNGS: The lungs are well inflated. There is airspace disease in the right lower lobe. The left lung is clear. PLEURA: No pleural effusions or pneumothorax. CARDIOVASCULAR: The heart is normal in size. No aortic atherosclerotic calcifications present. OSSEOUS STRUCTURES: Within normal limits for the patient's age. VISUALIZED UPPER ABDOMEN: Normal. OTHER FINDINGS: None. IMPRESSION: Right lower lobe pneumonia. Follow-up after medical management is recommended to ensure complete resolution. The final report is tagged to the PA review folder.
[2018-08-30 11:59] LABS: VENOUS BLOOD GAS BASE EXCESS 4.2 mmol/L (0.0-2.0); VENOUS BLOOD GAS PO2 34 mm/Hg (30-55); VENOUS BLOOD PH 7.46 (7.32-7.43)
[2018-08-30 12:01] LABS: BASO # 0.02 K/mm3 (0.0-2.0); BASO % 0.2 % (0.0-3.0); EOS % 0.3 % (1.5-5.0); HEMOGLOBIN 13.4 g/dL (12.0-16.0); LYMPH # 0.9 (1.2-3.4); LYMPH % 9.3 % (22.0-35.0); MEAN CELL VOLUME 95.3 fl (80.0-105.0); MEAN CORPUSCULAR HEMOGLOBIN 31.6 pg (25.0-35.0); MEAN CORPUSCULAR HGB CONC 33.2 g/dl (31.0-37.0); MEAN PLATELET VOLUME 8.4 fl (7.0-11.0); MONO # 1.1 (0.1-0.6); MONO % 11.6 % (1.0-6.0); RBC 4.24 10^6/uL (3.5-6.1); WHITE BLOOD COUNT 9.4 10^3/uL (4.5-11.0)
[2018-08-30] MEDS ORDERED: levoFLOXacin 500 mg in D5W 500 MG/100 ML BAG IVPB STA (12:02)
[2018-08-30 12:03] LABS: ALB/GLOB RATIO 1.1 (1.1-1.8); ALBUMIN 4.3 g/dL (3.0-4.8); ALT/SGPT 14 U/L (7-56); AST/SGOT 39 U/L (14-36); BLOOD UREA NITROGEN 14 mg/dL (7-21); CALCIUM 9.6 mg/dL (8.4-10.5); GFR NON-AFRICAN AMERICAN 49
[2018-08-30 12:04] LABS: INR 1.25; PROTHROMBIN TIME 14.1 SECONDS (9.4-12.5)
[2018-08-30 12:14] LABS: TROPONIN I < 0.01 ng/mL
--- NOTE | 2018-08-30 13:37 | CP.PCM.HP ---
<Jose Vergara - Last Filed: 08/30/18 15:42> History of Present Illness - History of Present Illness History of Present Illness: Jose Vergara Internal Medicine Resident- H&P on Behalf of Hospitalist Team Subjective: CC: pre-syncope, generalized weakness, cough HPI: Patient is a 67 year old female with a past medical history of hypertension, dyslipidemia, kidney stones who presents to the emergency department for evaluation and treatment of generalized weakness, cough with clear sputum production runny nose, and generalized muscle discomfort which began 3 days ago with no specific provoking event. Denies recent travel. Admits to multiple sick contacts at home. Visited PMD yesterday who prescribed doxycycline and promethazine. Patient admits to taking one dose of doxy yesterday. Admits to decreased PO intake since onset of symptoms. Also admits to one bout of nausea and nonbloody, nonbilious emesis this AM. Patient states that upon rising from toilet this morning she began feeling dizzy. She was assisted to the floor by daughter who is at bedside. Denies loss of consciousness and head trauma. States dizziness has resolved since onset. Admits to fever and chills. Denies SOB, chest pain, abdominal pain, nausea, vomiting, diarrhea, constipation, and urinary symptoms. 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 Gao Physical Examination: - Constitutional Appears: Non-toxic, No Acute Distress - Head Exam Head Exam: ATRAUMATIC, NORMOCEPHALIC - Eye Exam Eye Exam: EOMI, Normal appearance - ENT Exam ENT Exam: Mucous Membranes Moist, Normal Oropharynx - Neck Exam Neck exam: Positive for: Normal Inspection - Respiratory Exam Respiratory Exam: right lower lobe crackles, NORMAL BREATHING PATTERN. absent: Accessory Muscle Use - Cardiovascular Exam Cardiovascular Exam: tachycardic, +S1, +S2 - GI/Abdominal Exam GI & Abdominal Exam: Normal Bowel Sounds, Soft - Extremities Exam Extremities exam: trace edema bilateral lower extremities, Positive for: normal inspection. Negative for: calf tenderness - Back Exam Back exam: NORMAL INSPECTION. absent: CVA tenderness (L), CVA tenderness (R) - Neurological Exam Neurological exam: Alert, CN II-XII Intact, Oriented x3 - Psychiatric Exam Psychiatric exam: Normal Affect, Normal Mood - Skin Skin Exam: Dry, Intact, Normal Color, Warm Assessment and Plan: Patient is a 67 year old female with a past medical history of hypertension, dyslipidemia, kidney stones who is admitted for evaluation and treatment of generalized weakness. Patient was found to have a RLL pneumonia on cxr in addition to clinical sxs including cough, congestion, and joint pain. Sepsis, Community Acquired Pneumonia - 08/30/2018 CXR- Right lower lobe pneumonia - SIRS criteria met in the setting of infection - VBG showed no lactate elevation - start IVF NS @ 100cc/hr - procalcitonin ordered and pending - blood culture ordered and pending - atypicals ordered and pending - continue IV levofloxacin 750mg IV daily (08/30/18 EKG qtc- 466ms) - infectious disease consulted- appreciate recommendations Pre-Syncope, Weakness - likely secondary to decreased PO intake - start IVF NS @ 100cc/hr - orthostatic ordered and pending - PT consulted- appreciate recommendations Hypertension - continue home valsartan/hctz 160-25mg tab PO daily with holding parameters Hyperlipidemia - lipid profile ordered and pending - continue home pravastatin 80mg PO HS Chronic Palpitations - continue home metoprolol 100mg PO BID with holding parameters GERD - continue home famotidine 20mg PO every other day Prophylaxis - DVT ppx- SCDS, lovenox 40mg subq daily - GI ppx- famotidine 20mg PO every other day Patient case reviewed with and plan approved by attending physician, Dr. Jo. Present on Admission - Present on Admission Any Indicators Present on Admission: No Past Patient History - Infectious Disease Hx of Infectious Diseases: None - Tetanus Immunizations Tetanus Immunization: Unknown - Past Social History Smoking Status: Never Smoked - CARDIAC Hx Cardiac Disorders: Yes Hx Hypertension: Yes Hx Pacemaker: No Hx Peripheral Edema: Yes (left ankle +1 edema from sprain "sometimes") Other/Comment: palpitations - PULMONARY Hx Respiratory Disorders: Yes (epiglottitis/trach 2011) - NEUROLOGICAL Hx Neurological Disorder: No - HEENT Hx HEENT Problems: Yes (eyeglasses) Other/Comment: 01/2012 pt developed swelling to right neck and pain voice was hoarse and swollen glands, unable to swallow pills while in hospital throat was swelling dr samayoa performed sx could not get the endotracheal tube down her throat, pt had to be trached, pt dx with epiglottitis - RENAL Hx Kidney Stones: Yes (2011) Other/Comment: renal stents 08/2011, bladder/kidney infection - ENDOCRINE/METABOLIC Hx Endocrine Disorders: No - HEMATOLOGICAL/ONCOLOGICAL Hx Blood Disorders: No - INTEGUMENTARY Hx Dermatological Problems: No - MUSCULOSKELETAL/RHEUMATOLOGICAL Hx Falls: No - GASTROINTESTINAL Hx Gastrointestinal Disorders: Yes (obese) Hx Gall Bladder Disease: Yes HX Swallowing Problems: Yes (hx epiglottitis) - GENITOURINARY/GYNECOLOGICAL Hx Genitourinary Disorders: Yes Other/Comment: r breast bx x2 - PSYCHIATRIC Hx Psychophysiologic Disorder: Yes Hx Anxiety: Yes Hx Emotional Abuse: No Hx Physical Abuse: No Hx Substance Use: No - SURGICAL HISTORY Hx Cholecystectomy: Yes (and lysis of adhesions laparoscopic) Hx Musculoskeletal Surgery: Yes (right elbow fx sx w/plate) Other/Comment: thyroid bx x2, bakers cyst removed behind knee, trach due to epiglottitis - ANESTHESIA Hx Anesthesia Reactions: Yes (B/P DROPS) Meds Allergies/Adverse Reactions: Allergies Allergy/AdvReac Type Severity Reaction Status Date / Time cefuroxime axetil Allergy RASH Verified 08/30/18 11:14 [From Ceftin] Results - Vital Signs Recent Vital Signs: Last Vital Signs Temp 102.6 F H 08/30/18 11:49 Pulse 115 H 08/30/18 11:49 Resp 19 08/30/18 11:49 BP 135/77 08/30/18 11:11 Pulse Ox 96 08/30/18 11:49 - Labs Result Diagrams: 08/30/18 11:40 08/30/18 11:40 Labs: Laboratory Results - last 24 hr 08/30/18 08/30/18 08/30/18 11:05 11:40 11:40 WBC 9.4 RBC 4.24 Hgb 13.4 Hct 40.4 MCV 95.3 MCH 31.6 MCHC 33.2 RDW 13.0 Plt Count 189 MPV 8.4 Neut % (Auto) 78.6 H Lymph % (Auto) 9.3 L [place] % (Auto) 11.6 H Eos % (Auto) 0.3 L Baso % (Auto) 0.2 Lymph # (Auto) 0.9 L [place] # (Auto) 1.1 H Eos # (Auto) 0.0 Baso # (Auto) 0.02 Absolute Neuts (auto) 7.35 H PT INR APTT pO2 VBG pH VBG pCO2 VBG HCO3 VBG Total CO2 VBG O2 Sat (Calc) VBG Base Excess VBG Potassium Glucose Lactate FiO2 Sodium 136 Potassium 3.7 Chloride 100 Carbon Dioxide 28 Anion Gap 12 BUN 14 Creatinine 1.1 Est GFR ( Amer) 60 Est GFR (Non-Af Amer) 49 Random Glucose 137 H Calcium 9.6 Magnesium 1.5 L Total Bilirubin 0.8 AST 39 H ALT 14 Alkaline Phosphatase 50 Lactate Dehydrogenase 443 Total Creatine Kinase 83 Troponin I < 0.01 Total Protein 8.2 Albumin 4.3 Globulin 4.0 Albumin/Globulin Ratio 1.1 Venous Blood Potassium Influenza Typ A,B (EIA) Negative for flu a/b 08/30/18 08/30/18 11:40 11:50 WBC RBC Hgb Hct MCV MCH MCHC RDW Plt Count MPV Neut % (Auto) Lymph % (Auto) [place] % (Auto) Eos % (Auto) Baso % (Auto) Lymph # (Auto) [place] # (Auto) Eos # (Auto) Baso # (Auto) Absolute Neuts (auto) PT 14.1 H INR 1.25 APTT 31.0 pO2 34 VBG pH 7.46 H VBG pCO2 40.0 VBG HCO3 28.4 H VBG Total CO2 29.6 H VBG O2 Sat (Calc) 69.3 H VBG Base Excess 4.2 H VBG Potassium 3.7 Glucose 141 H Lactate 1.7 FiO2 21.0 Sodium 136.0 Potassium Chloride 101.0 Carbon Dioxide Anion Gap BUN Creatinine Est GFR ( Amer) Est GFR (Non-Af Amer) Random Glucose Calcium Magnesium Total Bilirubin AST ALT Alkaline Phosphatase Lactate Dehydrogenase Total Creatine Kinase Troponin I Total Protein Albumin Globulin Albumin/Globulin Ratio Venous Blood Potassium 3.7 Influenza Typ A,B (EIA) <Rangasamy,Ajantha - Last Filed: 08/31/18 12:43> Results - Vital Signs Recent Vital Signs: Last Vital Signs Temp 98.4 F 08/31/18 07:48 Pulse 93 H 08/31/18 11:24 Resp 20 08/31/18 07:48 BP 156/84 H 08/31/18 09:30 Pulse Ox 96 08/31/18 07:48 - Labs Result Diagrams: 08/31/18 07:00 08/31/18 07:00 Labs: Laboratory Results - last 24 hr 08/30/18 08/30/18 08/30/18 13:00 13:00 13:00 WBC RBC Hgb Hct MCV MCH MCHC RDW Plt Count MPV Neut % (Auto) Lymph % (Auto) [place] % (Auto) Eos % (Auto) Baso % (Auto) Lymph # (Auto) [place] # (Auto) Eos # (Auto) Baso # (Auto) Absolute Neuts (auto) Sodium Potassium Chloride Carbon Dioxide Anion Gap BUN Creatinine Est GFR ( Amer) Est GFR (Non-Af Amer) Random Glucose Hemoglobin A1c 5.6 Calcium Phosphorus Magnesium Total Bilirubin AST ALT Alkaline Phosphatase Total Protein Albumin Globulin Albumin/Globulin Ratio Triglycerides 117 Cholesterol 147 LDL Cholesterol Direct 85 HDL Cholesterol 29 Procalcitonin 0.11 L Urine Color Urine Appearance Urine pH Ur Specific [place] Urine Protein Urine Glucose (UA) Urine Ketones Urine Blood Urine Nitrate Urine Bilirubin Urine Urobilinogen Ur Leukocyte Esterase Urine RBC Urine WBC Ur Epithelial Cells Urine Bacteria 08/30/18 08/31/18 08/31/18 15:15 07:00 07:00 WBC 5.7 D RBC 3.90 Hgb 12.1 Hct 37.2 MCV 95.4 MCH 31.0 MCHC 32.5 RDW 13.0 Plt Count 186 MPV 8.8 Neut % (Auto) 54.3 Lymph % (Auto) 28.3 [place] % (Auto) 15.5 H Eos % (Auto) 1.7 Baso % (Auto) 0.2 Lymph # (Auto) 1.6 [place] # (Auto) 0.9 H Eos # (Auto) 0.1 Baso # (Auto) 0.01 Absolute Neuts (auto) 3.11 Sodium 137 Potassium 3.8 Chloride 102 Carbon Dioxide 28 Anion Gap 11 BUN 14 Creatinine 1.0 Est GFR ( Amer) > 60 Est GFR (Non-Af Amer) 55 Random Glucose 96 Hemoglobin A1c Calcium 9.1 Phosphorus 3.5 Magnesium 2.2 Total Bilirubin 0.6 AST 37 H ALT 11 Alkaline Phosphatase 41 Total Protein 7.3 Albumin 3.6 Globulin 3.6 Albumin/Globulin Ratio 1.0 L Triglycerides Cholesterol LDL Cholesterol Direct HDL Cholesterol Procalcitonin Urine Color Yellow Urine Appearance Clear Urine pH 6.5 Ur Specific [place] 1.015 Urine Protein Trace H Urine Glucose (UA) Negative Urine Ketones Negative Urine Blood Small H Urine Nitrate Negative Urine Bilirubin Negative Urine Urobilinogen 0.2 Ur Leukocyte Esterase Moderate H Urine RBC 1 - 3 H Urine WBC 10 - 15 H Ur Epithelial Cells 1 - 3 Urine Bacteria Trace Attending/Attestation - Attestation I have personally seen and examined this patient.: Yes I have fully participated in the care of the patient.: Yes I have reviewed all pertinent clinical information: Yes Notes (Text): 08/31/18 12:39 Attending note; patient seen and examined with resident In ER. Patient's daughter by the bedside. Patient is alert and awake. Complaining of cough and greenish sputum production. Patient had fevers and chills on and off for the past few days. Patient was treated with P.o. antibiotics as outpatient by PMD. Patient continues to have fever and tachycardia. 1. Right lower lobe pneumonia; failed outpatient p.o. antibiotics therapy. Patient is allergic to penicillin. Started on IV levofloxacin. 2. Fevers; continue Tylenol. Continue IV fluid. 3. Greenish sputum production; DuoNeb as needed ordered. Currently denies any shortness of breath. 4. Hypertension; continue metoprolol, Cozaar, hydrochlorthiazide. Monitor closely. Upon discharge the patient will follow up with PMD Dr. Gao. 08/31/18 12:42
[2018-08-30 13:52] VITALS: RESP 20
[2018-08-30 13:54] LABS: HDL CHOLESTEROL 29 mg/dL (29-60)
[2018-08-30 14:05] LABS: LDL CHOLESTEROL 85 mg/dL (0-129)
[2018-08-30] MEDS: Enoxaparin 40 mg Syringe SC SCH (15:14)
[2018-08-30] MEDS: Sodium Chloride 0.9% 1,000 ML IV SCH (15:15)
[2018-08-30 15:35] LABS: PH,URINE 6.5 (4.7-8.0); URINE APPEARANCE CLEAR (CLEAR); URINE BILIRUBIN NEGATIVE (NEGATIVE); URINE BLOOD SMALL (NEGATIVE); URINE COLOR YELLOW (YELLOW); URINE GLUCOSE (UA) NEGATIVE (NEGATIVE); URINE LEUKOCYTE ESTERASE MODERATE Leu/uL (NEGATIVE); URINE PROTEIN TRACE mg/dL (<30 mg/dL); URINE UROBILINOGEN 0.2 E.U./dL (<1 E.U./dL)
[2018-08-30 15:45] LABS: URINE BACTERIA TRACE /hpf
[2018-08-30] MEDS ORDERED: Magnesium Sulfate 2 gm/50 ml 2 GM/50 ML BAG IVPB ONE (17:17)
[2018-08-30] MEDS: Metoprolol Succinate 100 mg XL Tab PO SCH (17:51)
--- NOTE | 2018-08-30 18:18 | CARD ---
APPROVED REPORT Date of service: 08/30/2018 EKG Measurement Heart [id number] <Conclusion> Sinus tachycardia Left axis deviation Pulmonary disease pattern ST & T wave abnormality, consider anterior ischemia Abnormal ECG
[2018-08-30 21:24] VITALS: BMI 36.9
[2018-08-30] MEDS ORDERED: Influenza Vaccine 60 mcg/0.5 mL SYR (4YR UP) IM ONE (21:25)
[2018-08-30] MEDS ORDERED: Pneumococcal 23-Valent Vaccine IM ONE (21:25)
--- NOTE | 2018-08-30 22:32 | CON ---
DATE OF CONSULTATION: 08/30/2018 The patient is seen in Room 365. CHIEF COMPLAINT: Cough and fever for several days. HISTORY OF PRESENT ILLNESS: This is a 67-year-old female with a history of hypertension, high cholesterol, anxiety, epiglottitis, kidney stones. She has had a renal stent in the past. She has had cholecystectomy and thyroid nodule. I had last seen her in 2011 for epiglottitis, was treated now. She states that she had a viral illness approximately a week and a half to 2 weeks ago and then the night before last the patient had fevers, chills, cough, keon colored sputum, pleuritic chest pain intermittently, and no abdominal pain, no diarrhea, no constipation. No headaches or blurred vision. No dysuria or frequency. No rash, no rheumatoid pain. PAST MEDICAL HISTORY: Significant for hypertension, high cholesterol, anxiety, epiglottitis, and kidney stones. PAST SURGICAL HISTORY: Significant for renal stones, cholecystectomy, thyroid nodule biopsy. MEDICATIONS AT HOME: Pravachol, Protonix, valsartan, and metoprolol. ALLERGIES: THE PATIENT IS ALLERGIC TO CEFUROXIME. SHE DEVELOPS A RASH. PHYSICAL EXAMINATION: GENERAL: The patient is in bed, in no acute distress. VITAL SIGNS: Temperature of 102, heart rate of 116, blood pressure is 135/70, respiratory rate of 19, and saturating 96% on room air. HEENT: Unremarkable. NECK: Supple. LUNGS: Have decreased breath sounds. HEART: Normal S1, S2. ABDOMEN: Soft, nontender. No rebound or guarding. LABORATORY EXAMINATION: White count of 9.4, hemoglobin of 13, platelets of 189,000. Differential is noted. Coagulation is noted. The chemistries reveal a BUN of 14 and creatinine of 1.1. AST is 39. Urinalysis is noted, 10-15 wbc's. Serology for influenza is negative. Microbiology is pending. Chest x-ray is positive. ASSESSMENT/PLAN: This is a 67-year-old female with a temperature of 102, pulmonary infiltrates, tachycardia, pulmonary symptoms. #1 is sepsis with a right community-acquired pneumonia in a patient who is allergic to cefuroxime. We will check on the EKG, which has not been read, and we will check on blood cultures, sputum cultures, MRSA screen, urine for Legionella antigen, procalcitonin, and treat the patient with Levaquin due to her allergy and we will make further recommendations. Anthony Gomez MD
[2018-08-31] MEDS: Sodium Chloride 0.9% 1,000 ML IV SCH
[2018-08-31 07:54] LABS: BASO # 0.01 K/mm3 (0.0-2.0); BASO % 0.2 % (0.0-3.0); EOS # 0.1 (0.0-0.7); EOS % 1.7 % (1.5-5.0); HEMOGLOBIN 12.1 g/dL (12.0-16.0); LYMPH # 1.6 (1.2-3.4); LYMPH % 28.3 % (22.0-35.0); MEAN CELL VOLUME 95.4 fl (80.0-105.0); MEAN CORPUSCULAR HGB CONC 32.5 g/dl (31.0-37.0); MEAN PLATELET VOLUME 8.8 fl (7.0-11.0); MONO # 0.9 (0.1-0.6); MONO % 15.5 % (1.0-6.0); RBC 3.9 10^6/uL (3.5-6.1); WHITE BLOOD COUNT 5.7 10^3/uL (4.5-11.0)
[2018-08-31 08:04] LABS: ALBUMIN 3.6 g/dL (3.0-4.8); ALT/SGPT 11 U/L (7-56); AST/SGOT 37 U/L (14-36); BLOOD UREA NITROGEN 14 mg/dL (7-21); CALCIUM 9.1 mg/dL (8.4-10.5); GFR NON-AFRICAN AMERICAN 55
[2018-08-31] MEDS: levoFLOXacin 750 mg in D5W 750 MG/150 ML BAG IVPB SCH (09:30)
[2018-08-31] MEDS: Metoprolol Succinate 100 mg XL Tab PO SCH ×2 (09:30→17:52)
[2018-08-31] MEDS: Enoxaparin 40 mg Syringe SC SCH (09:30)
--- NOTE | 2018-08-31 09:38 | CP.PCM.PN ---
<JaiJose - Last Filed: 08/31/18 09:31> Subjective - Date & Time of Evaluation Date of Evaluation: 08/31/18 Time of Evaluation: 09:00 - Subjective Subjective: Jose Vergara Internal Medicine Resident- Progress Note on Behalf of Hospitalist Team Subjective: Patient seen and examined at bedside. Resting comfortably in bed. No acute overnight events. States generalized weakness and productive cough has improved relative to yesterday. Tolerating diet. Offers no new complaints at this time. Denies fever, chills, chest pain, shortness of breath, abdominal pain, nausea, vomiting, diarrhea, constipation, and urinary symptoms. 12 point ROS negative except as indicated in HPI Physical Examination: - Constitutional Appears: Non-toxic, No Acute Distress - Head Exam Head Exam: ATRAUMATIC, NORMOCEPHALIC - Eye Exam Eye Exam: EOMI, Normal appearance - ENT Exam ENT Exam: Mucous Membranes Moist, Normal Oropharynx - Neck Exam Neck exam: Positive for: Normal Inspection - Respiratory Exam Respiratory Exam: right lower lobe crackles, NORMAL BREATHING PATTERN. absent: Accessory Muscle Use - Cardiovascular Exam Cardiovascular Exam: RRR, +S1, +S2 - GI/Abdominal Exam GI & Abdominal Exam: Normal Bowel Sounds, Soft - Extremities Exam Extremities exam: trace edema bilateral lower extremities, Positive for: normal inspection. Negative for: calf tenderness - Back Exam Back exam: NORMAL INSPECTION. absent: CVA tenderness (L), CVA tenderness (R) - Neurological Exam Neurological exam: Alert, CN II-XII Intact, Oriented x3 - Psychiatric Exam Psychiatric exam: Normal Affect, Normal Mood - Skin Skin Exam: Dry, Intact, Normal Color, Warm Assessment and Plan: Patient is a 67 year old female with a past medical history of hypertension, dyslipidemia, kidney stones who is admitted for evaluation and treatment of generalized weakness. Patient was found to have a RLL pneumonia on cxr in addition to clinical sxs including cough, congestion, and joint pain. Sepsis, Community Acquired Pneumonia - 08/30/2018 CXR- Right lower lobe pneumonia - SIRS criteria met in the setting of infection - VBG showed no lactate elevation - start IVF NS @ 100cc/hr - procalcitonin- 0.11 low - blood culture ordered and pending - atypicals ordered and pending - continue IV levofloxacin 750mg IV daily (08/30/18 EKG qtc- 466ms) - infectious disease consulted- appreciate recommendations Pre-Syncope, Weakness - likely secondary to decreased PO intake - discontinue IVF NS @ 100cc/hr - orthostatic ordered and pending - PT consulted- appreciate recommendations Hypertension - continue home valsartan/hctz 160-25mg tab PO daily with holding parameters Hyperlipidemia - lipid profile ordered and pending - continue home pravastatin 80mg PO HS-- switched to atorvastatin 20mg PO dinner Chronic Palpitations - continue home metoprolol 100mg PO BID with holding parameters GERD - continue home famotidine 20mg PO every other day Prophylaxis - DVT ppx- SCDS, lovenox 40mg subq daily - GI ppx- famotidine 20mg PO every other day Patient case reviewed with and plan approved by attending physician, Dr. Jo. Objective - Vital Signs/Intake and Output Vital Signs (last 24 hours): Temp Pulse Resp BP Pulse Ox 98.4 F 92 H 20 140/75 96 08/31/18 07:48 08/31/18 07:48 08/31/18 07:48 08/31/18 07:48 08/31/18 07:48 Intake and Output: 08/31/18 08/31/18 06:59 18:59 Intake Total 240 Output Total 2 Balance 238 - Medications Medications: Current Medications Acetaminophen (Tylenol 325mg Tab) 650 mg PO Q4H PRN PRN Reason: Fever >100.4 F Last Admin: 08/31/18 01:10 Dose: 650 mg Albuterol/Ipratropium (Duoneb 3 Mg/0.5 Mg (3 Ml) Ud) 3 ml IH TIDRESP [facility] Aspirin (Ecotrin) 81 mg PO DAILY [facility] Atorvastatin Calcium (Lipitor) 20 mg PO DIN [facility] Last Admin: 08/30/18 17:51 Dose: 20 mg Enoxaparin Sodium (Lovenox) 40 mg SC DAILY [facility]; Protocol Last Admin: 08/30/18 15:14 Dose: 40 mg Famotidine (Pepcid) 20 mg PO QOTHERDAY [facility] Last Admin: 08/30/18 17:52 Dose: 20 mg Hydrochlorothiazide (Hydrodiuril) 25 mg PO DAILY [facility] Sodium Chloride (Sodium Chloride 0.9%) 1,000 mls @ 100 mls/hr IV .Q10H [facility] Last Admin: 08/31/18 00:00 Dose: 100 mls/hr Levofloxacin/Dextrose (Levaquin 750mg) 750 mg in 150 mls @ 100 mls/hr IVPB DAILY [facility]; Protocol Losartan Potassium (Cozaar) 100 mg PO DAILY [facility] Metoprolol Succinate (Toprol Xl) 100 mg PO BID [facility] Last Admin: 08/30/18 17:51 Dose: 100 mg - Labs Labs: 08/31/18 07:00 08/31/18 07:00 PT 14.1 SECONDS (9.4-12.5) H 08/30/18 11:40 INR 1.25 08/30/18 11:40 APTT 31.0 Seconds (26.9-38.3) 08/30/18 11:40 <Kathya Jo - Last Filed: 08/31/18 12:44> Objective - Vital Signs/Intake and Output Vital Signs (last 24 hours): Temp Pulse Resp BP Pulse Ox 98.4 F 93 H 20 156/84 H 96 08/31/18 07:48 08/31/18 11:24 08/31/18 07:48 08/31/18 09:30 08/31/18 07:48 Intake and Output: 08/31/18 08/31/18 06:59 18:59 Intake Total 240 Output Total 2 Balance 238 - Medications Medications: Current Medications Acetaminophen (Tylenol 325mg Tab) 650 mg PO Q4H PRN PRN Reason: Fever >100.4 F Last Admin: 08/31/18 01:10 Dose: 650 mg Albuterol/Ipratropium (Duoneb 3 Mg/0.5 Mg (3 Ml) Ud) 3 ml IH TIDRESP [facility] Last Admin: 08/31/18 11:19 Dose: 3 ml Aspirin (Ecotrin) 81 mg PO DAILY [facility] Last Admin: 08/31/18 09:31 Dose: 81 mg Atorvastatin Calcium (Lipitor) 20 mg PO DIN [facility] Last Admin: 08/30/18 17:51 Dose: 20 mg Enoxaparin Sodium (Lovenox) 40 mg SC DAILY [facility]; Protocol Last Admin: 08/31/18 09:30 Dose: 40 mg Famotidine (Pepcid) 20 mg PO QOTHERDAY [facility] Last Admin: 08/30/18 17:52 Dose: 20 mg Hydrochlorothiazide (Hydrodiuril) 25 mg PO DAILY [facility] Last Admin: 08/31/18 09:31 Dose: 25 mg Levofloxacin/Dextrose (Levaquin 750mg) 750 mg in 150 mls @ 100 mls/hr IVPB DAILY [facility]; Protocol Last Admin: 08/31/18 09:30 Dose: 100 mls/hr Losartan Potassium (Cozaar) 100 mg PO DAILY [facility] Last Admin: 08/31/18 09:31 Dose: 100 mg Metoprolol Succinate (Toprol Xl) 100 mg PO BID [facility] Last Admin: 08/31/18 09:30 Dose: 100 mg - Labs Labs: 08/31/18 07:00 08/31/18 07:00 PT 14.1 SECONDS (9.4-12.5) H 08/30/18 11:40 INR 1.25 08/30/18 11:40 APTT 31.0 Seconds (26.9-38.3) 08/30/18 11:40 Attending/Attestation - Attestation I have personally seen and examined this patient.: Yes I have fully participated in the care of the patient.: Yes I have reviewed all pertinent clinical information, including history, physical exam and plan: Yes Notes (Text): 08/31/18 12:43 Attending note; patient seen and examined with resident. Patient is alert and awake. Complaining of mild shortness of breath. Fever is improving. Complaining of cough and greenish sputum production. Patient had fevers and chills on and off for the past few days. Patient was treated with P.o. antibiotics as outpatient by PMD. 1. Right lower lobe pneumonia; failed outpatient p.o. antibiotics therapy. Patient is allergic to penicillin. Started on IV levofloxacin. 2. Fevers; improving. continue Tylenol. Continue IV fluids. tolerating diet. ID evaluation appreciated. 3. Greenish sputum production; DuoNeb as needed ordered. Currently denies any shortness of breath. 4. Hypertension; continue metoprolol, Cozaar, hydrochlorthiazide. Will discharge home tomorrow if clinically improving. Upon discharge the patient will follow up with PMD Dr. Gao.
[2018-08-31] MEDS ORDERED: VALSARTAN PO SCH (10:00)
[2018-08-31] MEDS ORDERED: HYDROCHLOROTHIAZIDE PO SCH (10:00)
[2018-08-31] MEDS ORDERED: [UNRECOGNIZED DRUG - OTHER] PO SCH (10:00)
[2018-08-31] MEDS: Albuterol-Ipratrop 3 mg / 0.5 (3 ml) UD IH SCH ×3 (11:19→19:46)
--- NOTE | 2018-08-31 15:21 | PN ---
DATE: 08/31/2018 SUBJECTIVE: The patient is seen this morning. She is doing much better. Her temperature is down. She is much improved. Overall she has been afebrile now since last night. PHYSICAL EXAMINATION VITAL SIGNS: On exam, temperature of 98, T-max yesterday was 102.4, blood pressure is 150/80, respiratory rate of 20 and heart rate of 92. HEENT: Unremarkable. NECK: Supple. LUNGS: Have decreased breath sounds. HEART: Normal S1 and S2. ABDOMEN: Soft. LABORATORY DATA: Laboratory examination reveals a white count of 5.7. Procalcitonin 0.11. Urinalysis is noted and is influenza is negative. Microbiology is pending and review of orders reveals the patient to be on Levaquin. ASSESSMENT AND PLAN: This is a 67-year-old female with a history of hypertension, high cholesterol, anxiety, had in the past, kidney stones and who was admitted with a fever of 102, tachycardia, positive infiltrates, pulmonary symptoms, #1 is sepsis with a right community-acquired pneumonia in a patient who is allergic to Septan and currently on Levaquin. Awaiting for blood culture results. Urine for Legionella antigen, and if the blood cultures are negative and the patient remains afebrile, may switch to p.o. Levaquin and complete the antibiotics as outpatient. The patient has been told that she needs a repeat chest x-ray as outpatient to follow the imaging to resolution. She understands and she will do so. Anthony Gomez MD
[2018-09-01 06:53] LABS: BASO # 0.03 K/mm3 (0.0-2.0); BASO % 0.5 % (0.0-3.0); EOS # 0.2 (0.0-0.7); EOS % 3.7 % (1.5-5.0); HEMOGLOBIN 11.7 g/dL (12.0-16.0); LYMPH % 32.7 % (22.0-35.0); MEAN CELL VOLUME 94.9 fl (80.0-105.0); MEAN CORPUSCULAR HEMOGLOBIN 31.4 pg (25.0-35.0); MEAN CORPUSCULAR HGB CONC 33.1 g/dl (31.0-37.0); MONO % 15.6 % (1.0-6.0); RBC 3.73 10^6/uL (3.5-6.1); WHITE BLOOD COUNT 6.2 10^3/uL (4.5-11.0)
[2018-09-01] MEDS: Albuterol-Ipratrop 3 mg / 0.5 (3 ml) UD IH SCH ×2 (07:55→13:19)
[2018-09-01 07:57] LABS: ALBUMIN 3.5 g/dL (3.0-4.8); CALCIUM 9.2 mg/dL (8.4-10.5)
[2018-09-01 08:02] VITALS: BP 126/79; PULSE 86; TEMP 97.9; O2SAT 94
[2018-09-01] MEDS: Enoxaparin 40 mg Syringe SC SCH (09:32)
[2018-09-01] MEDS: levoFLOXacin 750 mg in D5W 750 MG/150 ML BAG IVPB SCH (09:32)
[2018-09-01] MEDS: Metoprolol Succinate 100 mg XL Tab PO SCH (09:33)
--- NOTE | 2018-09-01 12:48 | CP.PCM.DIS ---
Provider - Provider Date of Admission: 08/30/18 12:48 Attending physician: Camilla Vergara DO Consults: 08/30/18 13:36 Infectious Disease Consult Routine Comment: Consulting Provider: Anthony Gomez Consulting Physician: Anthony Gomez Reason for Consult: abx recommendation, sepsis 2/2 pneumonia 08/30/18 21:01 Social Work Referral Routine Comment: d/c plan Physician Instructions: Reason For Exam: assess Time Spent in preparation of Discharge (in minutes): 35 Hospital Course - Lab Results Lab Results: Micro Results 08/30/18 12:00 Blood Blood Culture - Preliminary NO GROWTH AFTER 48 HOURS 08/30/18 11:40 Blood Blood Culture - Preliminary NO GROWTH AFTER 48 HOURS 08/30/18 15:15 Urine Random Urine Culture - Final Gram Positive Cocci Most Recent Lab Values WBC 6.2 10^3/uL (4.5-11.0) 09/01/18 06:00 RBC 3.73 10^6/uL (3.5-6.1) 09/01/18 06:00 Hgb 11.7 g/dL (12.0-16.0) L 09/01/18 06:00 Hct 35.4 % (36.0-48.0) L 09/01/18 06:00 MCV 94.9 fl (80.0-105.0) 09/01/18 06:00 MCH 31.4 pg (25.0-35.0) 09/01/18 06:00 MCHC 33.1 g/dl (31.0-37.0) 09/01/18 06:00 RDW 13.0 % (11.5-14.5) 09/01/18 06:00 Plt Count 201 10^3/uL (120.0-450.0) 09/01/18 06:00 MPV 9.0 fl (7.0-11.0) 09/01/18 06:00 Neut % (Auto) 47.5 % (50.0-68.0) L 09/01/18 06:00 Lymph % (Auto) 32.7 % (22.0-35.0) 09/01/18 06:00 [place] % (Auto) 15.6 % (1.0-6.0) H 09/01/18 06:00 Eos % (Auto) 3.7 % (1.5-5.0) 09/01/18 06:00 Baso % (Auto) 0.5 % (0.0-3.0) 09/01/18 06:00 Lymph # (Auto) 2.0 (1.2-3.4) 09/01/18 06:00 [place] # (Auto) 1.0 (0.1-0.6) H 09/01/18 06:00 Eos # (Auto) 0.2 (0.0-0.7) 09/01/18 06:00 Baso # (Auto) 0.03 K/mm3 (0.0-2.0) 09/01/18 06:00 Absolute Neuts (auto) 2.94 (1.4-6.5) 09/01/18 06:00 PT 14.1 SECONDS (9.4-12.5) H 08/30/18 11:40 INR 1.25 08/30/18 11:40 APTT 31.0 Seconds (26.9-38.3) 08/30/18 11:40 pO2 34 mm/Hg (30-55) 08/30/18 11:50 VBG pH 7.46 (7.32-7.43) H 08/30/18 11:50 VBG pCO2 40.0 (40-60) 08/30/18 11:50 VBG HCO3 28.4 mmol/l (21-28) H 08/30/18 11:50 VBG Total CO2 29.6 mmol.L (22-28) H 08/30/18 11:50 VBG O2 Sat (Calc) 69.3 % (40-65) H 08/30/18 11:50 VBG Base Excess 4.2 mmol/L (0.0-2.0) H 08/30/18 11:50 VBG Potassium 3.7 mmol/L (3.6-5.2) 08/30/18 11:50 Sodium 136.0 mmol/L (132-148) 08/30/18 11:50 Chloride 101.0 mmol/L (98-107) 08/30/18 11:50 Glucose 141 mg/dl (65-105) H 08/30/18 11:50 Lactate 1.7 mmol/L (0.7-2.1) 08/30/18 11:50 FiO2 21.0 % 08/30/18 11:50 Sodium 137 mmol/L (132-148) 09/01/18 06:00 Potassium 3.8 mmol/L (3.6-5.0) 09/01/18 06:00 Chloride 103 mmol/L (98-107) 09/01/18 06:00 Carbon Dioxide 27 mmol/L (21-33) 09/01/18 06:00 Anion Gap 11 (10-20) 09/01/18 06:00 BUN 18 mg/dL (7-21) 09/01/18 06:00 Creatinine 1.1 mg/dl (0.7-1.2) 09/01/18 06:00 Est GFR ( Amer) 60 09/01/18 06:00 Est GFR (Non-Af Amer) 49 09/01/18 06:00 Random Glucose 90 mg/dL (70-110) 09/01/18 06:00 Hemoglobin A1c 5.6 % (4.2-6.5) 08/30/18 13:00 Calcium 9.2 mg/dL (8.4-10.5) 09/01/18 06:00 Phosphorus 3.5 mg/dL (2.5-4.5) 08/31/18 07:00 Magnesium 2.2 mg/dL (1.7-2.2) 08/31/18 07:00 Total Bilirubin 0.4 mg/dL (0.2-1.3) 09/01/18 06:00 AST 41 U/L (14-36) H 09/01/18 06:00 ALT 22 U/L (7-56) 09/01/18 06:00 Alkaline Phosphatase 39 U/L (38-126) 09/01/18 06:00 Lactate Dehydrogenase 443 U/L (333-699) 08/30/18 11:40 Total Creatine Kinase 83 U/L (35-230) 08/30/18 11:40 Troponin I < 0.01 ng/mL 08/30/18 11:40 Total Protein 7.1 g/dL (5.8-8.3) 09/01/18 06:00 Albumin 3.5 g/dL (3.0-4.8) 09/01/18 06:00 Globulin 3.5 gm/dL 09/01/18 06:00 Albumin/Globulin Ratio 1.0 (1.1-1.8) L 09/01/18 06:00 Triglycerides 117 mg/dL (35-160) 08/30/18 13:00 Cholesterol 147 mg/dL (130-200) 08/30/18 13:00 LDL Cholesterol Direct 85 mg/dL (0-129) 08/30/18 13:00 HDL Cholesterol 29 mg/dL (29-60) 08/30/18 13:00 Procalcitonin 0.11 NG/ML (0.19-0.49) L 08/30/18 13:00 Venous Blood Potassium 3.7 mmol/L (3.6-5.2) 08/30/18 11:50 Urine Color Yellow (YELLOW) 08/30/18 15:15 Urine Appearance Clear (CLEAR) 08/30/18 15:15 Urine pH 6.5 (4.7-8.0) 08/30/18 15:15 Ur Specific [place] 1.015 (1.005-1.035) 08/30/18 15:15 Urine Protein Trace mg/dL (<30 mg/dL) H 08/30/18 15:15 Urine Glucose (UA) Negative mg/dL (NEGATIVE) 08/30/18 15:15 Urine Ketones Negative mg/dL (NEGATIVE) 08/30/18 15:15 Urine Blood Small (NEGATIVE) H 08/30/18 15:15 Urine Nitrate Negative (NEGATIVE) 08/30/18 15:15 Urine Bilirubin Negative (NEGATIVE) 08/30/18 15:15 Urine Urobilinogen 0.2 E.U./dL (<1 E.U./dL) 08/30/18 15:15 Ur Leukocyte Esterase Moderate Marie/uL (NEGATIVE) H 08/30/18 15:15 Urine RBC 1 - 3 /hpf (0-2) H 08/30/18 15:15 Urine WBC 10 - 15 /hpf (0-6) H 08/30/18 15:15 Ur Epithelial Cells 1 - 3 /hpf (0-5) 08/30/18 15:15 Urine Bacteria Trace /hpf (NONE) 08/30/18 15:15 Influenza Typ A,B (EIA) Negative for flu a/b (NEGATIVE) 08/30/18 11:05 Ur L.pneumophila Ag Negative (NEGATIVE) 08/31/18 01:14 - Hospital Course Hospital Course: 67 year old female with a past medical history of hypertension, dyslipidemia, kidney stones who presents to the emergency department with 3 days generalized weakness, cough, fever and was found to have a right sided pneumonia. She was treated with bronchodilators and given a two day course of Levofloxacin 750 mg with resolution of her fever and other symptoms. She was discharged with 5 days of PO Levaquin. She was asked to follow up with her PMD within 3-5 days of discharge and provided with the below written instructions/recommendations. - Date & Time of H&P Date of H&P: 09/01/18 Time of H&P: 12:48 Discharge Exam - Head Exam Head Exam: ATRAUMATIC, NORMOCEPHALIC - Eye Exam Eye Exam: EOMI, Normal appearance Pupil Exam: NORMAL ACCOMODATION - ENT Exam ENT Exam: Mucous Membranes Moist - Neck Exam Neck exam: Normal Inspection - Respiratory Exam Respiratory Exam: Clear to PA & Lateral, NORMAL BREATHING PATTERN. absent: Accessory Muscle Use - Cardiovascular Exam Cardiovascular Exam: RRR, +S1, +S2 - GI/Abdominal Exam GI & Abdominal Exam: Normal Bowel Sounds - Extremities Exam Extremities exam: normal inspection - Back Exam Back exam: NORMAL INSPECTION. absent: CVA tenderness (L), CVA tenderness (R) - Neurological Exam Neurological exam: Alert, CN II-XII Intact, Oriented x3 - Psychiatric Exam Psychiatric exam: Normal Affect, Normal Mood - Skin Skin Exam: Dry, Intact, Normal Color, Warm Discharge Plan - Discharge Medications Prescriptions: levoFLOXacin [Levaquin] 750 mg PO DAILY #5 tab - Follow Up Plan Condition: FAIR Disposition: HOME/ ROUTINE Additional Instructions: Take the Levaquin for 5 more days. Avoid strenuous activity Take the antibiotics with food, eat yogurt You will need a repeat chest xray after completion of antibiotics with your primary care doctor to evaluate for the resolution of your pneumonia. Please follow up with primary care doctor in 1 week Please Continue with the rest of your medications Please return to the emergency room if the symptoms persists or worsens. Referrals: Michael Gao MD [Family Provider] - (Follow up in 1 week)
--- NOTE | 2018-09-01 16:16 | CP.PCM.PN ---
Subjective - Date & Time of Evaluation Date of Evaluation: 09/01/18 Time of Evaluation: 11:05 - Subjective Subjective: Cough is less, breathing and feeling better, no fevers. Objective - Vital Signs/Intake and Output Vital Signs (last 24 hours): Temp Pulse Resp BP Pulse Ox 97.9 F 86 20 126/79 94 L 09/01/18 08:01 09/01/18 09:33 09/01/18 08:01 09/01/18 09:33 09/01/18 08:01 - Labs Labs: 09/01/18 06:00 09/01/18 06:00 PT 14.1 SECONDS (9.4-12.5) H 08/30/18 11:40 INR 1.25 08/30/18 11:40 APTT 31.0 Seconds (26.9-38.3) 08/30/18 11:40 - Constitutional Appears: Chronically Ill - Head Exam Head Exam: NORMAL INSPECTION - Respiratory Exam Respiratory Exam: Decreased Breath Sounds - Cardiovascular Exam Cardiovascular Exam: +S1, +S2 - GI/Abdominal Exam GI & Abdominal Exam: Soft. absent: Tenderness Assessment and Plan - Assessment and Plan (Free Text) Plan: Assessment sepsis due to Right lower lobe CAP, clinically improving HTN dyslipidemia anxiety history of kidney stones Plan complete 5-7 days of Levaquin; advised patient to get repeat CXR in 4-6 weeks with PMD
== END 2018-09-01 15:05 | disposition home or self-care (01) | DRG 871 ==
LOC: ED 11:00 → ERH 12:48 → 3RNO 15:29
PROVIDERS: ADMIT Internal Medicine; ATTEND Hospitalist
DX: A41.9 Sepsis, unspecified organism (principal); J18.1 Lobar pneumonia, unspecified organism; R55 Syncope and collapse; R42 Dizziness and giddiness; I10 Essential (primary) hypertension; R00.2 Palpitations; E78.00 Pure hypercholesterolemia, unspecified; E78.5 Hyperlipidemia, unspecified; F41.9 Anxiety disorder, unspecified; K21.9 Gastro-esophageal reflux disease without esophagitis; Z79.82 Long term (current) use of aspirin; Z82.49 Family history of ischemic heart disease and other diseases of the circulatory system; Z87.442 Personal history of urinary calculi; Z88.0 Allergy status to penicillin; Z90.49 Acquired absence of other specified parts of digestive tract; Z88.1 Allergy status to other antibiotic agents

== ENCOUNTER 2018-09-10 11:14 | Outpatient (CLI) | payer MEDICARE | END 2018-09-10 11:15 | disposition home or self-care (01) | LOC: RAD 11:14 ==

== ENCOUNTER 2018-10-02 16:10 | Outpatient (CLI) | payer MEDICARE | END 2018-10-02 16:11 | disposition home or self-care (01) | LOC: CARDIO 16:11 ==

== ENCOUNTER 2018-10-03 17:03 | Outpatient (CLI) | payer MEDICARE | END 2018-10-03 17:04 | disposition home or self-care (01) | LOC: RAD 17:03 | DX: J32.9 Chronic sinusitis, unspecified (principal); R05 Cough ==